=== PATIENT | male | born 1935 | race Caucasian/White ===

== ENCOUNTER → 2020-09-18 | Day surgery (SDC) | payer MEDICARE ==
[~2020-09-18] VITALS: Ht 167.6 cm; Wt 68.0 kg
[~2020-09-18] MED LIST: ALLO100T MT; APIX2.5T MT; ASPI-1497 MT; ATROPINE SULFATE 0.1MG/ML 10ML DISP.SYRIN ONE; AZOPT EACHEYE; FENTANYL CITRATE/PF 50MCG/ML 2ML VIAL ONE; FINA1TAB18 MT; KEPP500 MT; LIDOCAINE HCL 2% JELLY 5ML ONE; MIDAZOLAM HCL 2 MG/2 ML VIAL ONE; MIDAZOLAM HCL 5 MG/5 ML VIAL ONE; SIMV-43 MT; SOTA80TA MT; TETRACAINE/BENZOCAINE/BUTAMBEN 20 GM SPRAY MM ONE; URO10 MT
== END | disposition home or self-care (01) ==
LOC: CCL 08:20
PROVIDERS: ATTEND Specialist
DX: I48.91 Unspecified atrial fibrillation (principal); I34.0 Nonrheumatic mitral (valve) insufficiency; I10 Essential (primary) hypertension; E78.5 Hyperlipidemia, unspecified; I25.10 Atherosclerotic heart disease of native coronary artery without angina pectoris; N40.0 Benign prostatic hyperplasia without lower urinary tract symptoms; Z79.01 Long term (current) use of anticoagulants; Z79.82 Long term (current) use of aspirin; Z79.899 Other long term (current) drug therapy; Z98.890 Other specified postprocedural states; Z20.822 Contact with and (suspected) exposure to COVID-19
CPT/HCPCS: 87426; 93312; J2250; J3010; J0461